=== PATIENT | male | born 1995 | race Caucasian/White ===

== ENCOUNTER 2017-11-29 08:57 | Emergency (ER) | payer SELFPAY ==
--- NOTE | 2017-11-29 09:00 | ER Report ---
History and Physical Time Seen By MD: 08:59 HPI/ROS CHIEF COMPLAINT: Depression, suicidal ideation HISTORY OF PRESENT ILLNESS: Patient is a 22-year-old male here with complaints of suicidal ideation without a plan. Patient admits to also harming himself however he denies any plan to do so or any prior history of self-harm. Denies complaints or thoughts of hurting anybody else. Denies alcohol or substance abuse. Symptoms have been intermittent for the last several years however recently increasing stressors have precipitated exacerbation of these thoughts. Stressors include a recent relationship ending, stress at work, financial stress , loneliness. Patient reportedly moved to the area for relationship however that relationship is now over which is worsened his loneliness and depression. Patient denies prior history of being treated for his depression or being followed by a therapist. He is currently on no medications and denies other medical issues. Patient denies headache, blurred vision, chest pain, shortness of breath, nausea, vomiting, pain. Police were called by an unknown individual in [place] voicing concern for the patient which prompted the patient being brought to the emergency department today. REVIEW OF SYSTEMS: Constitutional: No fever, no chills. Eyes: No discharge. ENT: No sore throat. Cardiovascular: No chest pain, no palpitations. Respiratory: No cough, no shortness of breath. Gastrointestinal: No abdominal pain, no vomiting. Genitourinary: No hematuria. Musculoskeletal: No back pain. Skin: No rashes. Neurological: No headache. psychiatry: + depression, SI without plan Allergies: Coded Allergies: No Known Drug Allergies (Unverified , 11/29/17) Home Meds No Active Prescriptions or Reported Meds Past Medical/Surgical History Depression Constitutional Vital Sign - Last 24 Hours 11/29/17 11/29/17 09:02 11:00 Temp 98.5 Pulse 86 77 Resp 16 B/P (MAP) 138/85 132/87 (102) Pulse Ox 92 O2 Delivery Room Air Physical Exam General Appearance: The patient is alert, has no immediate need for airway protection and no signs of toxicity. NAD Eyes: Pupils equal and round no pallor or injection. ENT, Mouth: Mucous membranes are moist. Respiratory: There are no retractions, lungs are clear to auscultation. Cardiovascular: Regular rate and rhythm. Gastrointestinal: Abdomen is soft and non tender, no masses, bowel sounds normal. Neurological: No focal deficits Skin: Warm and dry, no rashes. Musculoskeletal: Neck is supple non tender. Extremities are nontender, nonswollen and have full range of motion. Psych: Depressed, non suicidal, appropriate speech DIFFERENTIAL DIAGNOSIS: After history and physical exam differential diagnosis was considered for depression, suicidal ideation, anxiety, substance abuse Medical Decision Making Data Points Result Diagram: 11/29/17 0924 11/29/17 0924 Laboratory Hematology Test 11/29/17 09:24 11/29/17 11:33 Red Blood Count 5.65 M/uL (4.00-5.60) Mean Corpuscular Volume 89.5 fL (80.0-96.0) Mean Corpuscular Hemoglobin 31.0 pg (26.0-33.0) Mean Corpuscular Hemoglobin Concent 34.6 g/dL (32.0-36.0) Red Cell Distribution Width 13.4 % (11.5-14.5) Mean Platelet Volume 9.0 fL (7.2-11.1) Neutrophils (%) (Auto) 69.7 % (39.4-72.5) Lymphocytes (%) (Auto) 23.3 % (17.6-49.6) Monocytes (%) (Auto) 6.4 % (4.1-12.4) Eosinophils (%) (Auto) 0.2 % (0.4-6.7) Basophils (%) (Auto) 0.4 % (0.3-1.4) Nucleated RBC Relative Count (auto) 0.1 /100WBC Neutrophils # (Auto) 3.6 K/uL (2.0-7.4) Lymphocytes # (Auto) 1.2 K/uL (1.3-3.6) Monocytes # (Auto) 0.3 K/uL (0.3-1.0) Eosinophils # (Auto) 0.0 K/uL (0.0-0.5) Basophils # (Auto) 0.0 K/uL (0.0-0.1) Nucleated RBC Absolute Count (auto) 0.01 K/uL Peripheral Blood Smear No Y/N Sodium Level 143 mmol/L (137-145) Potassium Level 3.9 mmol/L (3.5-5.0) Chloride Level 103 mmol/L (98-107) Carbon Dioxide Level 25 mmol/L (22-30) Blood Urea Nitrogen 20 mg/dl (9-21) Creatinine 1.00 mg/dl (0.66-1.25) Glomerular Filtration Rate Calc > 60.0 Random Glucose 88 mg/dl (75-110) Calcium Level 9.6 mg/dl (8.4-10.2) Magnesium Level 2.1 mg/dl (1.7-2.2) Total Bilirubin 0.7 mg/dl (0.2-1.3) Aspartate Amino Transf (AST/SGOT) 26 U/L (0-35) Alanine Aminotransferase (ALT/SGPT) 54 U/L (0-56) Alkaline Phosphatase 91 U/L (0-126) Total Protein 6.9 g/dl (6.3-8.2) Albumin 4.4 g/dl (3.5-5.0) Salicylates Level < 10 mg/L Salicylate Last Dose Date unknwn Acetaminophen Level < 10 ug/ml Serum Alcohol < 10 mg/dl Urine Color Yellow Urine Clarity Slightly-cloudy Urine pH 5.0 pH (4.8-9.5) Urine Specific [place] 1.031 Urine Protein Negative mg/dL (NEGATIVE) Urine Glucose (UA) Negative mg/dL (NEGATIVE) Urine Ketones 20 mg/dL (NEGATIVE) Urine Blood Negative (NEGATIVE) Urine Nitrite Negative (NEGATIVE) Urine Bilirubin Negative (NEGATIVE) Urine Urobilinogen Negative mg/dL (0.2-1.9) Urine Leukocyte Esterase Negative (NEGATIVE) Urine RBC None /HPF (0-2/HPF) Urine WBC 1 /HPF (0-5/HPF) Urine Squamous Epithelial Cells None /LPF (</=FEW) Urine Bacteria Negative /HPF (NONE-FEW) Urine Mucus Few /HPF (NONE-FEW) Urine Opiates Screen Negative Urine Barbiturates Screen Negative Ur Tricyclic Antidepressants Screen Negative Urine Phencyclidine Screen Negative Urine Amphetamines Screen Negative Urine Benzodiazepines Screen Negative Urine Cocaine Screen Negative Urine Cannabinoids Screen Negative Chemistry Test 11/29/17 09:24 11/29/17 11:33 White Blood Count 5.2 k/uL (4.5-11.0) Red Blood Count 5.65 M/uL (4.00-5.60) Hemoglobin 17.5 g/dL (14.0-18.0) Hematocrit 50.6 % (42.0-52.0) Mean Corpuscular Volume 89.5 fL (80.0-96.0) Mean Corpuscular Hemoglobin 31.0 pg (26.0-33.0) Mean Corpuscular Hemoglobin Concent 34.6 g/dL (32.0-36.0) Red Cell Distribution Width 13.4 % (11.5-14.5) Platelet Count 164 K/uL (150-450) Mean Platelet Volume 9.0 fL (7.2-11.1) Neutrophils (%) (Auto) 69.7 % (39.4-72.5) Lymphocytes (%) (Auto) 23.3 % (17.6-49.6) Monocytes (%) (Auto) 6.4 % (4.1-12.4) Eosinophils (%) (Auto) 0.2 % (0.4-6.7) Basophils (%) (Auto) 0.4 % (0.3-1.4) Nucleated RBC Relative Count (auto) 0.1 /100WBC Neutrophils # (Auto) 3.6 K/uL (2.0-7.4) Lymphocytes # (Auto) 1.2 K/uL (1.3-3.6) Monocytes # (Auto) 0.3 K/uL (0.3-1.0) Eosinophils # (Auto) 0.0 K/uL (0.0-0.5) Basophils # (Auto) 0.0 K/uL (0.0-0.1) Nucleated RBC Absolute Count (auto) 0.01 K/uL Peripheral Blood Smear No Y/N Glomerular Filtration Rate Calc > 60.0 Calcium Level 9.6 mg/dl (8.4-10.2) Magnesium Level 2.1 mg/dl (1.7-2.2) Total Bilirubin 0.7 mg/dl (0.2-1.3) Aspartate Amino Transf (AST/SGOT) 26 U/L (0-35) Alanine Aminotransferase (ALT/SGPT) 54 U/L (0-56) Alkaline Phosphatase 91 U/L (0-126) Total Protein 6.9 g/dl (6.3-8.2) Albumin 4.4 g/dl (3.5-5.0) Salicylates Level < 10 mg/L Salicylate Last Dose Date unknwn Acetaminophen Level < 10 ug/ml Serum Alcohol < 10 mg/dl Urine Color Yellow Urine Clarity Slightly-cloudy Urine pH 5.0 pH (4.8-9.5) Urine Specific [place] 1.031 Urine Protein Negative mg/dL (NEGATIVE) Urine Glucose (UA) Negative mg/dL (NEGATIVE) Urine Ketones 20 mg/dL (NEGATIVE) Urine Blood Negative (NEGATIVE) Urine Nitrite Negative (NEGATIVE) Urine Bilirubin Negative (NEGATIVE) Urine Urobilinogen Negative mg/dL (0.2-1.9) Urine Leukocyte Esterase Negative (NEGATIVE) Urine RBC None /HPF (0-2/HPF) Urine WBC 1 /HPF (0-5/HPF) Urine Squamous Epithelial Cells None /LPF (</=FEW) Urine Bacteria Negative /HPF (NONE-FEW) Urine Mucus Few /HPF (NONE-FEW) Urine Opiates Screen Negative Urine Barbiturates Screen Negative Ur Tricyclic Antidepressants Screen Negative Urine Phencyclidine Screen Negative Urine Amphetamines Screen Negative Urine Benzodiazepines Screen Negative Urine Cocaine Screen Negative Urine Cannabinoids Screen Negative Toxicology Test 11/29/17 09:24 11/29/17 11:33 Salicylates Level < 10 mg/L Salicylate Last Dose Date unknwn Acetaminophen Level < 10 ug/ml Serum Alcohol < 10 mg/dl Urine Opiates Screen Negative Urine Barbiturates Screen Negative Ur Tricyclic Antidepressants Screen Negative Urine Phencyclidine Screen Negative Urine Amphetamines Screen Negative Urine Benzodiazepines Screen Negative Urine Cocaine Screen Negative Urine Cannabinoids Screen Negative Urinalysis Test 11/29/17 11:33 Urine Color Yellow Urine Clarity Slightly-cloudy Urine pH 5.0 pH (4.8-9.5) Urine Specific [place] 1.031 Urine Protein Negative mg/dL (NEGATIVE) Urine Glucose (UA) Negative mg/dL (NEGATIVE) Urine Ketones 20 mg/dL (NEGATIVE) Urine Blood Negative (NEGATIVE) Urine Nitrite Negative (NEGATIVE) Urine Bilirubin Negative (NEGATIVE) Urine Urobilinogen Negative mg/dL (0.2-1.9) Urine Leukocyte Esterase Negative (NEGATIVE) Urine RBC None /HPF (0-2/HPF) Urine WBC 1 /HPF (0-5/HPF) Urine Squamous Epithelial Cells None /LPF (</=FEW) Urine Bacteria Negative /HPF (NONE-FEW) Urine Mucus Few /HPF (NONE-FEW) ED Course/Re-evaluation ED Course Patient is a 22-year-old male here with complaints of suicidal ideation without a plan. Patient is not being treated patient setting is denies prior inpatient treatment. He is currently not on any medications. He does have access to firearms at home per police. Police were called today by an unknown individual [place] who voiced concern for the patient's depressed state. Patient admits to suicidal ideation but denies any prior history of suicide attempts or current plan on doing so. Patient was very cooperative during course in the emergency department. Labs were collected. Behavioral health was contacted regarding the patient's presence in the emergency department. I discussed the patient with Dr. Borden and she accepted the patient to the service. Decision to Disposition Date: Nov 29, 2017 Decision to Disposition Time: 13:22 Depart Departure Latest Vital Signs Vital Signs Date Time Temp Pulse Resp B/P (MAP) Pulse Ox O2 Delivery O2 Flow Rate FiO2 11/29/17 11:00 77 132/87 (102) 11/29/17 09:02 98.5 16 92 Room Air Impression: Primary Impression: Depression Additional Impression: Suicidal ideation Condition: Condition Unchanged Disposition: XFER TO [facility] New Scripts No Active Prescriptions or Reported Meds Problem Qualifiers NOHELIA SPENCER DO Nov 29, 2017 09:00
[2017-11-29 09:34] LABS: PLATELET COUNT, AUTOMATED 164 K/uL (150-450)
[2017-11-29 11:00] VITALS: BP 132/87
== END 2017-11-29 11:40 | disposition home or self-care (01) ==
LOC: ER 09:02
DX: R45.851 Suicidal ideations (principal); F32.9 Major depressive disorder, single episode, unspecified
CPT/HCPCS: 36415; 80305; 80320; 80329; 81001; 82040; 82247; 82310; 82374; 82435; 82565; 82947; 83735; 84075; 84132; 84155; 84295; 84443; 84450; 84460; 84520; 85025; 99284

== ENCOUNTER 2017-11-29 11:01 | Inpatient (IN) | payer SELFPAY ==
[~2017-11-29] VITALS: Ht 172.7 cm; Wt 98.0 kg
[2017-11-29 11:35] VITALS: BP 118/82
[2017-11-29] MEDS ORDERED: MAG HYD/AL HYD/SIMETH 30ML UDC PO PRN (12:15)
[2017-11-29] MEDS ORDERED: ACETAMINOPHEN 325 MG TAB PO PRN (12:15)
--- NOTE | 2017-11-29 15:23 | HISTORY AND PHYSICAL ---
DATE OF ADMISSION: November 29, 2017 DATE OF INITIAL INTERVIEW: November 29, 2017, approximately 1330. PRESENTING PROBLEM/CHIEF COMPLAINT "It's been a snowball effect over the last couple of years. On Friday, my girlfriend left me. Two months ago, the stress started building between my girlfriend, work, and finances." HISTORY OF PRESENT ILLNESS This patient is a 22-year-old male who presented to the Emergency Department after having reported suicidal ideation to a friend, who then called police. Patient denies history of self-harm behaviors or suicide attempts, denies use of alcohol or illicit substances. He reports having periods of depression the last two years, although increased stress began over the last two months. Current stressors include a recent breakup with a girlfriend this week, work- related stressors, and financial stressors. Patient had moved to [place] in January 2017, at which time his girlfriend was attending school here. Patient reports that she abruptly broke up with him on Friday and moved out for no known reason. He reports he was in this relationship for two years, although had been acquaintances with the girlfriend for the last six, reporting that she was "everything" to him. Patient denies specific plan to hurt himself, although does report he has firearms in the home as he is an avid angelita. Patient is reporting his depression as coming in spurts, ranging from a two to an eight on a one to 10 scale with 10 being the worst. His last suicidal thoughts were this morning with no specific plan for self-harm. He reports his anxiety as a one. He reports that his anger can increase to an eight depending on the situation, although denies behavioral outbursts or hitting objects. He reports his sleep is usually sufficient. It has been reported that he snores, and he does wake up with morning headaches. Sometimes has loss of motivation in the morning; thus, we will be placing pulse oximetry for evaluation tonight. He reports his sleep is usually good. At times he had nightmares, occasionally every night, and at times has woken up yelling. He denies history of physical, emotional, or sexual abuse. He reports his energy level and appetite are usually sufficient. Patient was agreeable to a voluntary admission for further evaluation and treatment. MENTAL HEALTH HISTORY Patient has never been an inpatient on a psychiatric unit. He had some counseling in his senior year of high school when he had trouble with his parents. He denies history of taking a psychotropic medication. He denies history of suicide attempts. FAMILY PSYCHIATRIC HISTORY Patient reports there is some depression in his maternal grandfather and a possibility of bipolar disorder in father's extended family in possibly a cousin. MEDICAL HISTORY 1. Patient denies history of seizures. 2. Denies history of major surgeries or health concerns. 3. He has had a history of migraines in the past. 4. He has had two episodes of blackouts with unknown cause, one 4 years ago, one 6 years ago. 5. He reports he has had two concussions without loss of consciousness, one 3 years ago, one 5 years ago, one sports related, one from a fall, although again denies history of seizures. 6. No history of cardiac or pulmonary complaints. ALLERGIES No known drug allergies. CURRENT MEDICATIONS Patient currently not on any medications. SOCIAL HISTORY Patient was born and raised in [place], [place]. He has never , has no children. His parents were not at the time of his . His mother is now and is a 3rd grade teacher in [place], [place]. His father lives in [facility] where he moved there three years ago with his stepmother. He has three half-sisters on his mother's side, one half-brother on his father's side. 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 Previously worked at [employer]. He is currently living in an apartment by himself with his dog. LEGAL HISTORY Patient denies legal issues. OFFENDER/VICTIM Patient denies history of physical, emotional, or sexual abuse. SUBSTANCE ABUSE HISTORY Patient reports that he previously tried marijuana for a couple of months. Denies recent use. Denies other trials of other illicit substances. He rarely drinks. 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 PHYSICAL EXAMINATION Please see emergency room notes for physical exam. VITAL SIGNS: At time of admission include temperature of 99.2, pulse is 76, respiratory rate 16, blood pressure 118/82, pulse oximetry 95% on room air. LABORATORY DATA CBC within normal limits. RBC slightly elevated, 5.65. Chemistry panel within normal limits. Thyroid stimulating hormone is pending. Urine screen within normal limits with exception of high amount of ketones at 20. Toxicology including salicylates, acetaminophen, serum alcohol level less than 10. Urine screen negative for opiates, barbiturates, tricyclics, phencyclidine, amphetamines, benzodiazepines, cocaine, and cannabinoids. MENTAL STATUS EXAMINATION GENERAL APPEARANCE, BEHAVIOR, AND ATTITUDE: This is a calm, cooperative, polite , 22-year-old male, interacting well with team members at time of initial interview. No periods of tearfulness. No bizarre mannerisms or tics. SPEECH: Regular rate, rhythm, volume, tone. MOOD: Dysthymic. AFFECT: Mood congruent. THOUGHT PROCESSES: Logical, goal directed. No loose associations. No flight of ideas. THOUGHT CONTENT: Free of auditory or visual hallucinations, ideas of reference , thought broadcasting, delusions, obsessions, compulsions. Patient reporting last suicidal thoughts were this morning. Denying homicidal ideation. SENSORIUM: Clear. COGNITION: Alert and oriented to person, place, time, and situation. MEMORY: Immediate, recent, and remote estimated intact. INTELLIGENCE: Average based on interview. INSIGHT AND JUDGMENT: Considered intact as patient agreeable to voluntary admission for further evaluation and treatment. ASSESSMENT This is a 22-year-old, single, male who presented to the Emergency Room after he had verbalized suicidal ideation to a friend, who had called law enforcement. Patient reports intermittent depression over the last couple of years which had worsened over the last two months with relationship stressors. He reports significant increase in depression and anger following an unexpected breakup with his girlfriend this week. He also reports work-related and financial stressors. He has a limited support system, reporting that his grandfather living in [place], [place], is his best support system. He is rating his depression and anxiety as moderate. He becomes angry at times, although keeps this to himself. No behavioral outbursts. He reports his sleep , energy, and appetite are usually sufficient. He does report occasionally walking with up morning headaches, history of migraines, history of snoring, and thus, we will place pulse oximetry for evaluation tonight. He has never been an inpatient on the psychiatric unit, never had any self-harm behaviors or suicide attempts, and agreeable to ongoing evaluation and treatment. DIAGNOSES PER DIAGNOSTIC AND STATISTICAL MANUAL OF MENTAL DISORDERS, FIFTH EDITION 1. Adjustment disorder with mixed anxiety and depressed mood. 2. Persistent depressive disorder. 3. Rule out obstructive sleep apnea. 4. Problems related to recent breakup with girlfriend. 5. Work-related stressors. 6. Financial stressors. PLAN 1. We will admit to the unit. 2. Necessary precautions will be implemented. 3. Individual and group therapy will be initiated. 4. Medications will be considered, administered, and titrated accordingly. 5. Further tests and imaging as necessary. 6. Estimated length of stay three to five days. MTDD
[2017-11-29 23:07] VITALS: BP 139/92
[2017-11-30 06:02] VITALS: BP 114/58
[2017-11-30] MEDS: MULTIVITAMINS PO SCH (09:00)
--- NOTE | 2017-11-30 10:31 | B[facility] Progress Note ---
[facility] - Subjective Progress Notes Subjective "My sleep was the same, I wake up a lot." Continue pulse oximetry last pm, oxygen level >90% Depression "3" anxiety "5' Last SI yesterday Suicidal Ideation: None Homicidal Ideation: None [facility] - Objective Physical Exam Vital Signs Allergies Coded Allergies No Known Drug Allergies (Unverified11/29/17) Muscle Strength and Tone: WNL Gait and Station: Steady S Medications Reviewed: Side Effects, Benefits of Medication, Risks Allergies Reviewed: Yes Mental Status Exam General Appearance: Casual, Well Groomed, Good Eye Contact, Cooperative, Polite , Good Interaction Speech: Clear, Spontaneous, Normal Rate, Normal Rhythm, Normal Volume, Normal Tone Mood: Dysthmic/Depressed (rates "3") Affect: Full and Appropriate, Calm Thought Process: Organized, Logical, Goal Directed Thought Content: No Suicidal Ideation, No Homicidal Ideation, No Delusions, No Auditory Halllucinations, No Visual Hallucinations, No Thought Broadcasting, No Ideas of Reference, No Obsessions, No Compulsions Sensorium: Clear Cognition: Alert & Oriented-Person, Alert & Oriented-Place, Alert & Oriented- Time, Awelg-Ozudcidv-Evqufwzly Memory: Immediate, Recent, Remote Intelligence: Average Insight Judgment: Intact, Appropriate Lab Allergies Coded Allergies No Known Drug Allergies (Unverified11/29/17) [facility] Assessment and Plan [id number] Encounter Date: Nov 30, 2017 [id number] Encounter Time: 10:25 Multpiple Antipsychotics Used: No Problems: (1) Adjustment disorder with mixed anxiety and depressed mood Status: Acute (2) Persistent depressive disorder Status: Chronic (3) Suicidal ideation Status: Resolved Condition Review medication options, start Fluoxetine 20 mg po every am targeting depression/anxiety Trazadone 50 mg po @ hs prn insomnia, review risks, benefits, alternatives, agrees to report adverse s/e Maintain precautions JOSE GUADALUPE SINGH NP Nov 30, 2017 10:31
[2017-11-30] MEDS ORDERED: traZODone HCL 50 MG TAB PO PRN (13:15)
[2017-11-30 13:28] VITALS: BP 122/62
[2017-11-30] MEDS: FLUoxetine HCL 20 MG CAP PO SCH (13:54)
[2017-11-30 17:28] VITALS: BP 133/88
[2017-12-01 05:59] VITALS: BP 146/83
[2017-12-01] MEDS: MULTIVITAMINS PO SCH (08:11)
[2017-12-01] MEDS: FLUoxetine HCL 20 MG CAP PO SCH (08:11)
[2017-12-01] MEDS ORDERED: TRAZ150T8 PO (11:59)
[2017-12-01] MEDS ORDERED: FLUO-202 PO (12:01)
--- NOTE | 2017-12-02 12:07 | DISCHARGE SUMMARY ---
DATE OF ADMISSION: November 29, 2017 DATE OF DISCHARGE: December 01, 2017 Patient was seen on the 01 of December at approximately 0900 for note concerning this dictation. FINAL DIAGNOSIS Adjustment disorder with depressed and anxious mood specifically related to relationship breakup and other social stressors, persisting depressive disorder likely. REASON FOR ADMISSION This is a very pleasant, 22-year-old male who took an active role in his care. Patient was admitted after having thoughts of self-harm in relation to recent breakup, patient explaining that overall culmination of stressors resulted in patient feeling down. Patient has some evidence of underlying prior depression as well. Patient was started on Prozac and trazodone. Please see H and P for full details regarding patient's history. The patient continued to improve, patient again taking a very active role in his treatment. No parasuicidal behaviors were noted. It is also notable that the overnight pulse ox did not seem to indicate any degree of sleep apnea. Patient's condition improved, and patient discharged to home. PHYSICAL EXAMINATION Please see emergency room note. Notable for: GENERAL: A 22-year-old male, no acute physical distress. VITAL SIGNS: Vital signs at time of admission, temperature 98.6, pulse 86, respiratory rate 16, blood pressure 138/86, and pulse oximetry 92% on room air. LABORATORY DATA CBC unremarkable. CMP unremarkable. TSH 2.07. Urinalysis: Some ketones present, otherwise unremarkable. Toxicology screen was negative for substances of abuse with an undetectable serum alcohol level. MENTAL STATUS EXAMINATION GENERAL APPEARANCE, BEHAVIOR, AND ATTITUDE: This is a very polite, cooperative , 22-year-old male, making good eye contact. No psychomotor agitation or retardation. No periods of tearfulness. No bizarre mannerisms or tics. SPEECH: Within normal limits. Regular rate, rhythm, volume, and tone. MOOD: Described as improved. AFFECT: Full and mood congruent. THOUGHT PROCESSES: Goal directed, logical. No loose associations or flight of ideas. THOUGHT CONTENT: Free of auditory or visual hallucinations, ideas of reference , thought broadcasting, delusions, obsessions, compulsions. Patient adamantly denying suicidal or homicidal ideation. SENSORIUM: Clear. COGNITION: Alert and oriented to person, place, time, situation. MEMORY: Immediate, recent, and remote estimated intact. INTELLIGENCE: Average based on interview. INSIGHT AND JUDGMENT: Considered grossly intact and appropriate for ongoing outpatient care. RESULTS OF TESTING IMAGING: None. LABORATORY DATA: See above. CONSULTATIONS None. TREATMENT Patient received medications, participated in individual and group therapy. HOSPITAL COURSE Again, patient was very cooperative throughout his stay and took an active role in his treatment. Patient was started on trazodone and Prozac with good results. Patient worked with therapist as well on an individual basis, and patient is discharged to home. CONDITION OF PATIENT ON DISCHARGE Stable, considered minimal risk to himself or others, appropriate for outpatient care. DISPOSITION Patient discharged to home. Follow up with outpatient medication and therapy appointments as scheduled. Crisis line was given should symptoms return. No evidence of sleep apnea existed on overnight pulse oximetry. Risks versus benefits of above discharge plan were discussed. Informed consent was given to proceed with above discharge plan by this cooperative and competent patient. DISCHARGE MEDICATIONS 1. Trazodone 50 to 150 mg p.o. at bedtime. 2. Prozac 20 mg p.o. q.a.m. 3. Multivitamin with minerals daily. MTDD
== END 2017-12-01 12:57 | disposition home or self-care (01) | DRG 885 ==
LOC: BHS 11:01
PROVIDERS: ADMIT Nurse Practitioner Psychiatric/Mental Health; ATTEND Nurse Practitioner Psychiatric/Mental Health
DX: F33.9 Major depressive disorder, recurrent, unspecified (principal); R45.851 Suicidal ideations; F43.23 Adjustment disorder with mixed anxiety and depressed mood; G47.00 Insomnia, unspecified; Z63.5 Disruption of family by separation and divorce; Z81.8 Family history of other mental and behavioral disorders; Z56.6 Other physical and mental strain related to work
CPT/HCPCS: 82306